=== PATIENT | male | born 1935 | race Caucasian/White ===

== ENCOUNTER 2023-12-17 18:54 | Emergency (ER) | payer MEDICARE, BC, SELFPAY ==
[2023-12-17 18:58] VITALS: BP 159/89
[2023-12-17 19:16] VITALS: BMI 26.0
[2023-12-17] MEDS: ADACEL 0.5 ML IM (20:47)
--- NOTE | 2023-12-17 22:38 | ED.SKININJ ---
HPI-Injury
General
Chief Complaint: Skin Surface Trauma
Source: patient and palliative care nurse practitioner
Exam Limitations: none
Time Seen by Provider: 12/17/23 20:12
Nursing documentation reviewed up to this point in time: agreed with
Travel History
Have you had any contact with someone who has COVID-19?: No
Do you have any symptoms of coronavirus? Fever > 100 degrees, chills, cough, shortness of breath, sore throat, loss of taste or smell, muscle aches, or headache?: No
History of Present Illness-Injury
Is this injury a work related problem?: No
Is pt an associate of [facility]?: No
Initial Injury comments:
Accidentally hit his wrist on edge of door. Sustained a laceration to right dorsal wrist. Injury occured just M[employer]
Past History
Past History
ED Past Medical History: Arrthythmia, Hypercholesterolemia and Seizures
ED Past Surgical History: Negative Cardiac
Social History
Tobacco: Non-smoker
Alcohol: Occasional
Drug: None
Personal:
Living: with family
Employment: Retired
Family History
Family History: Other (Noncontributory)
Review of Systems
Review of Systems
Allergies reviewed?: Yes
All Other Systems: ROS reviewed and negative except as documented in HPI and ROS
Constitutional: Reports no symptoms
Musculoskeletal: Reports no symptoms
Skin: Reports other (Laceration to right dorsal wrist)
Neurological: Reports no symptoms
Psychiatric: Reports no symptoms
Skin Exam
Laceration
Right Dorsal Wrist:
Length in cm: 5
Orientation: horizontal
Type of Laceration: simple
Any active bleeding?: no active bleeding
Distal skin color and temperature: normal-warm & good color
Normal distal neurovascular exam: Yes
Range of motion: full
Phy Exam
General Physical Exam
General Presentation: well appearing and no apparent distress
General age: appears stated age
General Skin: warm and dry
General Habitus: normal
General Mental: alert
Musculoskeletal Exam
Musculoskeletal Exam: full ROM and neuro vasc intact
Skin Exam
Skin Exam: normal color, warm/dry and no rash
Psychiatric Exam
Psychiatric Exam: normal mood/affect
Course
Orders/Labs/Results
Orders:
Orders
12/17/23 20:37
Tetanus/Diphth/Acelpertussis [Adacel] 0.5 ml IM .ONCE ONE
Vital Signs
Initial and Last Documented VS:
Initial Vital Signs
Temp Pulse Resp BP Pulse Ox
98.1 F 56 24 159/89 98
12/17/23 18:58 12/17/23 18:58 12/17/23 18:58 12/17/23 18:58 12/17/23 18:58
Last Documented Vital Signs
Temp Pulse Resp BP Pulse Ox
98.1 F 56 24 159/89 98
12/17/23 18:58 12/17/23 18:58 12/17/23 18:58 12/17/23 18:58 12/17/23 18:58
Procedures
Laceration Closure
Right Dorsal Wrist:
Status of Wound: clean
Description of Wound Edges: sharp
Preparation: cleaned with saline
Anesthesia: 1% Lidocaine with epi
Revision/Debridement: routine- no revision
Wound exploration: explored to base- no FB
Type of Closure: single layer closure
Skin Closure Material: 5-0 prolene
Number of sutures: 7
*Critical Care Note
Total Time (30-74mins, 75-104mins- exclusive of procedures): Not Applicable
ED Attending Note
-
Portions of this chart may have been created with voice recognition software.� Occasional wrong word or��sound alike� substitutions may have occurred due to the inherent limitations of voice recognition software.
Discharge Plan
Departure
Patient Disposition: Home (Routine Discharge)
Date of Disposition: 12/17/23
Time of Disposition: 20:37
Patient with high blood pressure during this ER visit?: No
Condition: Good
Covid-19: Not Applicable
Discharge Problem:
Laceration of wrist
Instructions: Laceration Repair With Stitches (DC)
Prescriptions:
No Action
losartan 50 MG tablet
50 mg PO DAILY
apixaban [Eliquis] 5 MG tablet
5 mg PO BID
magnesium oxide 400 MG tablet
400 mg PO DAILY
levetiracetam 500 MG tablet
500 mg PO HS
acetaminophen [Tylenol Arthritis Pain] 650 MG tablet extended release
650 mg PO BID
B-complex with vitamin C 1 CAPLET tablet
1 cap PO DAILY
Z-Quil
1 cap PO HS
primidone 250 MG tablet
250 mg PO BID
acetaminophen-codeine 300-15 mg Tablet
1 tab PO Q4HPRN PRN (Reason: pain) Qty: 10 0RF
Activity Restrictions/Additional Instructions:
Sutures can be removed in 7-10 days by your family doctor.
Interventions
Interventions:
*Risk Screen - Suicide Last Done: 12/17/23 18:58
*General Assessment Last Done: 12/17/23 19:17
*Neglect/Abuse Screening Last Done: 12/17/23 18:58
ED- Fall Risk Assessment Last Done: 12/17/23 19:17
*ED COVID-19 Vaccine History Last Done: 12/17/23 19:15
*Nursing Disposition Last Done: 12/17/23 20:54
ED-Skin Assessment Last Done: 12/17/23 19:18
Discharge Date and Time
Discharge Date/Time: 12/17/23 21:07
Print Language: PERSIAN
== END 2023-12-17 21:07 | disposition home or self-care (01) ==
LOC: EMR 18:54
PROVIDERS: EMERGENCY PHYSICIAN Emergency Medicine; FAMILY PHYSICIAN Family Medicine
DX: S61.511A Laceration without foreign body of right wrist, initial encounter (principal); W22.09XA Striking against other stationary object, initial encounter; Z23 Encounter for immunization; E78.00 Pure hypercholesterolemia, unspecified
CPT/HCPCS: 99282; 12001; 90471; 90715

== ENCOUNTER 2024-07-05 14:14 | Emergency (ER) | payer MEDICARE, BC, SELFPAY ==
[2024-07-05 14:38] VITALS: BP 109/57
--- NOTE | 2024-07-05 15:50 | ED.MUSCINJ ---
HPI-Injury
General
Chief Complaint: Musculo-Skeletal Complaint
Source: patient and family
Exam Limitations: none
Time Seen by Provider: 07/05/24 15:33
Nursing documentation reviewed up to this point in time: agreed with
History of Present Illness-Injury
Is this injury a work related problem?: No
Is pt an associate of [facility]?: No
Initial Injury comments:
Patient to ED iwth complaint of right lat rib pain, right hip pain. Daughter states that he fell at home approx 1.5 weeks ago. No head injury. Has been complaining of discomfort off and on since then. Brought to ED by daughter for eval.
Past History
Past History
ED Past Medical History: Arrthythmia, Hypercholesterolemia and Seizures
ED Past Surgical History: Negative Cardiac
Social History
Tobacco: Non-smoker
Alcohol: Occasional
Drug: None
Personal:
Living: with family
Employment: Retired
Family History
Family History: Other (Noncontributory)
Review of Systems
Review of Systems
Allergies reviewed?: Yes
Other source history: family
All Other Systems: ROS reviewed and negative except as documented in HPI and ROS
Constitutional: Reports no symptoms
EENT: Reports no symptoms
Respiratory: Reports no symptoms
Cardiac: Reports no symptoms
ABD/GI: Reports no symptoms
: Reports no symptoms
Musculoskeletal: Reports joint pain (Pain to right lat ribs, right hip)
Skin: Reports no symptoms
Neurological: Reports no symptoms
Psychiatric: Reports no symptoms
Musculoskeletal Injury Exam
Musculoskeletal Injury Exam
Right Hip:
Pain with Movement?: Mild
Tender to palpation?: Mild
Soft tissue swelling?: None
External deformity and angulation?: None
Joint effusion?: None
Contusion?: Moderate
Hematoma-local bleeding into tissue?: None
Strain- Sprain- Tear (Connective tissue injury)?: None
Crepitus with movement?: No
Joint instability?: No
Malalignment/deformity?: No
Range of motion: Full
Distal skin color and temperature: normal-warm & good color
Capillary Refill: normal
Normal distal neurovascular exam?: Yes
Peripheral Pulses: posterior tibial (right): 3+ and dorsalis pedis (right): 3+
Right Lateral Chest:
Pain with Movement?: Mild
Tender to palpation?: Mild
Soft tissue swelling?: None
External deformity and angulation?: None
Joint effusion?: None
Contusion?: Moderate
Hematoma-local bleeding into tissue?: None
Strain- Sprain- Tear (Connective tissue injury)?: None
Crepitus with movement?: No
Joint instability?: No
Malalignment/deformity?: No
Range of motion: Full
Distal skin color and temperature: normal-warm & good color
Capillary Refill: normal
Normal distal neurovascular exam?: Yes
Phy Exam
General Physical Exam
General Presentation: well appearing and no apparent distress
General age: appears stated age
General Skin: warm and dry
General Habitus: normal
General Mental: alert
Cardiovascular Exam
Cardiovascular Exam: regular rate/rhythm and no edema
Pulmonary Exam
Pulmonary Exam: lungs clear and no respiratory distress
Gastrointestinal Exam
Gastrointestinal Exam: normal bowel sounds, non tender and soft
Neurological Exam
Neurological Exam: alert, oriented x3, CN II-XII intact, no motor deficits, no sensory deficits and speech normal
Musculoskeletal Exam
Musculoskeletal Exam: full ROM and neuro vasc intact
Skin Exam
Skin Exam: normal color, warm/dry and no rash
Psychiatric Exam
Psychiatric Exam: normal mood/affect
Injury Course
Orders/Labs/Results
Orders:
Orders
07/05/24 15:49
Hip, Right 2-3 Views [CR Hip - RT w/wo Pel 2-3 Vw*] Urgent
Comment:
Reason For Exam: fall, pain
Include a pelvis x-ray?: Yes
Ribs, Right 3 View W/PA Chest [CR Ribs-right 3 Vw W/pa Chest*] Urgent
Comment:
Reason For Exam: fall, pain
*Radiology
Radiology exam reviewed: preliminary read by ED provider (No fx)
*Pulse Oximetry
Patient hypoxic: no
*Critical Care Note
Total Time (30-74mins, 75-104mins- exclusive of procedures): Not Applicable
ED Attending Note
-
Portions of this chart may have been created with voice recognition software.� Occasional wrong word or��sound alike� substitutions may have occurred due to the inherent limitations of voice recognition software.
Discharge Plan
Departure
Patient Disposition: Home (Routine Discharge)
Date of Disposition: 07/05/24
Time of Disposition: 17:18
Patient with high blood pressure during this ER visit?: No
Condition: Good
Covid-19: Not Applicable
Discharge Problem:
Contusion of hip, Chest wall contusion
Instructions: Contusion (DC), Using Cold for Pain, Preventing falls - ED discharge instructions
Prescriptions:
No Action
losartan 50 MG tablet
50 mg PO DAILY
apixaban [Eliquis] 5 MG tablet
5 mg PO BID
magnesium oxide 400 MG tablet
400 mg PO DAILY
levetiracetam 500 MG tablet
500 mg PO HS
acetaminophen [Tylenol Arthritis Pain] 650 MG tablet extended release
650 mg PO BID
B-complex with vitamin C 1 CAPLET tablet
1 cap PO DAILY
Z-Quil
1 cap PO HS
primidone 250 MG tablet
250 mg PO BID
acetaminophen-codeine 300-15 mg Tablet
1 tab PO Q4HPRN PRN (Reason: pain) Qty: 10 0RF
Referrals:
Maria Alejandra Leonard DO [Family Provider] - Keep scheduled appt
Interventions
Interventions:
ED-Musculoskeletal Assessment Last Done: 07/05/24 16:22
Discharge Date and Time
Print Language: KYRGYZ
[2024-07-05 17:38] VITALS: BP 153/76
== END 2024-07-05 17:40 | disposition home or self-care (01) ==
LOC: EMR 14:14
PROVIDERS: EMERGENCY PHYSICIAN Emergency Medicine; FAMILY PHYSICIAN Family Medicine
DX: S20.219A Contusion of unspecified front wall of thorax, initial encounter (principal); S70.01XA Contusion of right hip, initial encounter; W19.XXXA Unspecified fall, initial encounter; E78.00 Pure hypercholesterolemia, unspecified
CPT/HCPCS: 99283; 71101; 73502

== ENCOUNTER 2024-08-04 13:26 | Emergency (ER) | payer MEDICARE, BC, SELFPAY ==
[2024-08-04 13:35] VITALS: BP 154/77
--- NOTE | 2024-08-04 16:43 | ED.GENMED ---
History of Present Illness
General
Chief Complaint: Fall
Source: patient, family and transitions rn care coordinator
Exam Limitations: clinical condition
Time Seen by Provider: 08/04/24 16:43
Nursing documentation reviewed up to this point in time: agreed with
History of Present Illness
History of Present Illness:
88 y/o M
with h/o afib on eliquis
had an unwitnessed fall, heard by caregivers/daughter who were in the other room
h/o neuropathy, needs walker and needs assistance
tried to grab his waler and fell
daughter thinks he hit his head on the wall at 1030 am
helpied up and has been his normal typical mental status
he has issues with speech and memory
had tylenol earlier around 1130 am
pt c/o headache/lump and neck pain and shoulder pain initially
but now saying his shoulder still hurts
no other copmlaints
Past History
Past History
ED Past Medical History: Arrthythmia, Hypercholesterolemia and Seizures
ED Past Surgical History: Negative Cardiac
Social History
Tobacco: Non-smoker
Alcohol: Occasional
Drug: None
Personal:
Living: with family
Employment: Retired
Family History
Family History: Other (Noncontributory)
Review of Systems
Review of Systems
Allergies reviewed?: Yes
Unable to obtain full review of systems at this time due to: dementia
All Other Systems: Not applicable
Phy Exam
Physical Exam
Physical Exam:
GENERAL: Alert , in no apparent distress
HEAD: NCAT
NECK: no midline tenderness, can fully range neck but has some pain with full extension
EYE: pupils equal and reactive, EOMs intact.
ENT: o/p clr, mmm. no hemotympanum
CARDIAC: Regular rate and rhythm, no edema
LUNGS: Clear breath sounds bilaterally, no acute respiratory distress, no wheezes/rales/rhonchi
ABDOMEN: Soft, without focal tenderness, no r/g, no cvat
NEUROLOGICAL: Alert and oriented very slow speech, voice hoarseness, baseline for patient, no focal neuro deficits, CN intact, 5/5 strength, sensation intact
SKIN: Warm and dry,
MUSCULOSKELETAL: No edema, well perfused.
PSYCH: Normal and appropriate interaction.
Course
Orders/Labs/Results
Orders:
Orders
08/04/24 13:41
CT Head W/o Iv Contrast Urgent
Comment:
Reason For Exam: fall
08/04/24 13:42
CR Clavicle - Left Complete Urgent
Comment:
Reason For Exam: fall
08/04/24 16:57
Cervical Spine wo Contrast CT [CT Cervical Spine W/o Iv Contr] Urgent
Comment:
Reason For Exam: fall, L neck pain,
Vital Signs
Pulse: 80
Blood pressure: 162/88
Initial and Last Documented VS:
Initial Vital Signs
Temp Pulse Resp BP Pulse Ox
36.7 C 56 16 154/77 96
08/04/24 13:35 08/04/24 13:35 08/04/24 13:35 08/04/24 13:35 08/04/24 13:35
Last Documented Vital Signs
Temp Pulse Resp BP Pulse Ox
36.7 C 80 16 162/88 96
08/04/24 13:35 08/04/24 16:57 08/04/24 13:35 08/04/24 16:57 08/04/24 13:35
MDM/Problems Addressed
Differential Diagnosis Includes:
Clavicle fracture, shoulder fracture,'s contusion, head injury, ICH, skull fracture, concussion, cervical fracture
MDM/Problems Addressed:
88-year-old male with some mild dementia, slow speech at baseline, A-fib on Eliquis, has 2 caregivers who were not physically next to him when the patient fell. Patient apparently falls easily. He got up out of bed and was found on the ground.
They heard the thump. He had no loss of consciousness. She believes he hit his head on the wall. He is unreliable for history because he oftentimes forgets quickly. But he has not had any change in mental status, vomiting, new confusion,
lethargy. He complained of a lump on his head, headache, neck pain and shoulder pain. He has a previous clavicle fracture. Initially the x-rays independently reviewed by me show a clavicle fracture that looked old. Patient had a head CT which
was negative for any intracranial injuries however because of his complaints of neck pain and his age I ordered a cervical spine CT. Patient was feeling very unhappy about waiting for this. He ended up getting the CT after changing his mind
several times about whether to stay for it. He did end up waiting for period of time for the results afterwards but his daughter ultimately took him home prior to the results of the CT. This is his request. I did call her back with the results of
the CT showing that he probably has an acute clavicle fracture. He has no cervical spine fracture. She reports that they have a sling at home that could put him in so I did not feel there was any need for the patient to return. He should
follow-up with his orthopedist. His daughter seems reliable to do so
*Critical Care Note
Total Time (30-74mins, 75-104mins- exclusive of procedures): Not Applicable
ED Attending Note
-
Portions of this chart may have been created with voice recognition software.� Occasional wrong word or��sound alike� substitutions may have occurred due to the inherent limitations of voice recognition software.
Discharge Plan
Departure
Patient Disposition: Home (Routine Discharge)
Date of Disposition: 08/04/24
Time of Disposition: 19:09
Patient with high blood pressure during this ER visit?: Yes
Condition: Fair
Discharge Problem:
Hematoma, Minor closed head injury, Acute pain of left shoulder, Arthritis
Instructions: Head Injury in Adults (DC), Cervical Sprain ED
Prescriptions:
No Action
losartan 50 MG tablet
50 mg PO DAILY
apixaban [Eliquis] 5 MG tablet
5 mg PO BID
magnesium oxide 400 MG tablet
400 mg PO DAILY
levetiracetam 500 MG tablet
500 mg PO HS
acetaminophen [Tylenol Arthritis Pain] 650 MG tablet extended release
650 mg PO BID
B-complex with vitamin C 1 CAPLET tablet
1 cap PO DAILY
Z-Quil
1 cap PO HS
primidone 250 MG tablet
250 mg PO BID
acetaminophen-codeine 300-15 mg Tablet
1 tab PO Q4HPRN PRN (Reason: pain) Qty: 10 0RF
Activity Restrictions/Additional Instructions:
Your CAT scans show no sign of significant trauma. The x-ray of his clavicle showed an old fracture without any new evidence of fracture. Ice off-and-on as as needed for pain and swelling. Tylenol every 6 hours as needed for pain. Follow-up with
the family doctor this week. Return immediately for change in mental status, vomiting, weakness, confusion, lethargy etc.
Interventions
Interventions:
*Risk Screen - Suicide Last Done: 08/04/24 13:35
*General Assessment Last Done: 08/04/24 13:35
*Neglect/Abuse Screening Last Done: 08/04/24 13:35
*ED COVID-19 Vaccine History Last Done: 08/04/24 13:35
Discharge Date and Time
Print Language: SOUTH AFRICAN
== END 2024-08-04 19:59 | disposition home or self-care (01) ==
LOC: EMR 13:26
PROVIDERS: EMERGENCY PHYSICIAN Emergency Medicine; FAMILY PHYSICIAN Family Medicine
DX: S00.83XA Contusion of other part of head, initial encounter (principal); M25.512 Pain in left shoulder; M54.2 Cervicalgia; W19.XXXA Unspecified fall, initial encounter; M19.012 Primary osteoarthritis, left shoulder; I48.91 Unspecified atrial fibrillation; E78.00 Pure hypercholesterolemia, unspecified; Z79.01 Long term (current) use of anticoagulants; F03.A0 Unspecified dementia, mild, without behavioral disturbance, psychotic disturbance, mood disturbance, and anxiety; Z87.81 Personal history of (healed) traumatic fracture
CPT/HCPCS: 99284; 70450; 72125; 73000